=== PATIENT | male | born 1965 | race African-American/Black ===

== ENCOUNTER 2018-11-25 11:58 | Emergency (ER) | payer SELFPAY ==
[~2018-11-25] VITALS: Ht 188 cm; Wt 83.9 kg
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
[2018-11-25 12:33] LABS: BASOPHILS % (AUTO) 1.5 % (0.0-2.0); EOSINOPHILS % (AUTO) 0.5 % (0.0-6.0); HEMATOCRIT 37 % (39-51); HEMOGLOBIN 11.9 g/dL (13.5-17.5); LYMPHOCYTES # (AUTO) 1.5 /CMM (0.8-4.8); LYMPHOCYTES % (AUTO) 45.4 % (20.0-44.0); MEAN CORPUSCULAR HGB CONC 33 g/dl (31.0-36.0); MEAN CORPUSCULAR VOLUME 86 fL (80-96); MONOCYTES # (AUTO) 0.4 /CMM (0.1-1.30); MONOCYTES % (AUTO) 11.4 % (2.0-12.0); NEUTROPHILS # (AUTO) 1.3 /CMM (1.8-8.9); NEUTROPHILS % (AUTO) 41.2 % (43.0-81.0); PLATELET COUNT (AUTO) 142 /CMM (150-450); RED BLOOD CELL COUNT(AUTO) 4.25 MIL/uL (4.5-6.0); WHITE BLOOD COUNT (AUTO) 3.2 K/uL (4.3-11.0)
--- NOTE | 2018-11-25 12:38 | NUR ---
PT UNABLE TO STAY AWAKE LONG ENOUGH TO GIVE URINE SAMPLE. NOTIFIED
[2018-11-25 12:41] LABS: CALCIUM, SERUM 8.2 mg/dL (8.5-10.1); CREATININE 0.6 mg/dL (0.6-1.3); POTASSIUM 3.4 mmol/L (3.5-5.1)
[2018-11-25 12:48] LABS: ALBUMIN 3.4 g/dL (3.4-5.0); BILIRUBIN,DIRECT 0.1 mg/dL (0.0-0.2); BILIRUBIN,TOTAL 0.3 mg/dL (0.2-1.0); SALICYLATE 8.2 mg/dL (2.8-20.0); TOTAL PROTEIN, SERUM 8.6 g/dL (6.4-8.2)
--- NOTE | 2018-11-25 14:03 | NUR ---
Patient is resting comfortably in bed with eyes closed. Easily aroused. VSS
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
--- NOTE | 2018-11-25 16:06 | NUR ---
URINE SENT TO STAT LAB
[2018-11-25 16:13] LABS: APPEARANCE,URINE Clear (CLEAR); BILIRUBIN,URINE Negative (NEGATIVE); BLOOD, URINE Moderate Ery/uL (NEGATIVE); COLOR,URINE Light yellow (YELLOW); KETONES,URINE Negative (NEGATIVE); LEUKOCYTE ESTERASE ,URINE Negative (NEGATIVE); NITRITE, URINE Negative (NEGATIVE); PH,URINE 5.5 (5.0-8.0); PROTEIN,URINE 100 mg/dl (NEGATIVE); UGLUCOSE Negative (NEGATIVE); UROBILINOGEN,URINE 0.2 EU/dL (0.2)
[2018-11-25 16:31] LABS: BACTERIA,URINE None seen /HPF (None Seen); HYALINE CASTS, URINE Few /LPF (None Seen); SQUAMOUS EPITHELIAL CELL,UR Few /HPF (None Seen); WBC,URINE 0-2 /HPF (0-3)
--- NOTE | 2018-11-25 17:11 | NUR ---
PT SITTING UP IN BED COMFORTABLY. VERY APOLOGETIC REGARDING HIS DISPOSITION. "I SMELL BAD, I FEEL ASHAMED". REASSURED PT.
--- NOTE | 2018-11-25 18:43 | NUR ---
OFFERED HOMELESS RESOURCES, TAP CARD. PT ACCEPTED AND READY FOR DISCHARGE.
--- NOTE | 2018-11-25 19:01 | NUR ---
Patient discharged to home in stable condition. Written and verbal after care instructions given. Patient verbalizes understanding of instruction.
[2018-11-25 19:38] VITALS: BP 118/78
== END 2018-11-25 19:39 | disposition home or self-care (01) ==
LOC: ER 12:00
DX: F10.129 Alcohol abuse with intoxication, unspecified (principal); F17.200 Nicotine dependence, unspecified, uncomplicated; Y90.8 Blood alcohol level of 240 mg/100 ml or more
CPT/HCPCS: 36415; 80048; 80076; 80305; 80329; 81001; 85025; 99283; A4606; G0480 ×2; Z7610; 81000-TC